=== PATIENT | male | born 1970 | race Caucasian/White ===

== ENCOUNTER 2023-04-04 08:24 | Outpatient (CLI) | payer OTHER, SELFPAY ==
[2023-04-04 09:29] LABS: 25-OH Vitamin D, Total 25.6 ng/mL (30-100)
== END 2023-04-04 23:59 ==
PROVIDERS: Visit Provider Podiatrist Foot & Ankle Surgery
DX: E55.9 Vitamin D deficiency, unspecified (principal)
CPT/HCPCS: 36415; 82306